=== PATIENT | female | born 1965 | race Caucasian/White ===

== ENCOUNTER 2021-06-08 09:59 | Emergency (ER) | payer OTHER ==
[2021-06-08 12:05] LABS: HEMOGLOBIN 14.2 gm/dl (12.3-15.3); RED BLOOD COUNT 4.64 M/UL (4.00-5.10); WHITE BLOOD COUNT 11.1 K/UL (4.5-11.0)
[2021-06-08 12:26] LABS: BUN/CREATININE RATIO 20 (0-10)
[2021-06-08] MEDS ORDERED: MECLIZINE HCL25 MG PO (13:17)
[2021-06-08] MEDS ORDERED: CEPHALEXIN500 MG PO (13:17)
[2021-06-08] MEDS ORDERED: ONDANSETRON ODT4 MG SL (13:17)
== END 2021-06-08 13:37 | disposition home or self-care (01) ==
LOC: ER1 09:59
PROVIDERS: Physician Assistant
DX: N39.0 Urinary tract infection, site not specified (principal); R42 Dizziness and giddiness; R11.2 Nausea with vomiting, unspecified; E03.9 Hypothyroidism, unspecified
CPT/HCPCS: 70450; 80053; 81001; 82550; 82553; 83874; 84484; 85025; 87086; 93005; 99284